=== PATIENT | female | born 1985 | race Caucasian/White ===

== ENCOUNTER 2018-05-24 22:28 | Outpatient (CLI) | payer OTHER ==
[~2018-05-24] VITALS: Ht 180.3 cm; Wt 83.9 kg
[~2018-05-24 22:28] MED LIST: ALBUTEROL SULF8.5 GM IH; CLARITIN10 MG PO; HYDROCODON-ACE1 EAC7 PO; IBUPROFEN800 MG PO; NASA MIST SALIN75 ML BOTH NARES; PULMICORT FLEX90 MCG IH
[2018-05-24 22:33] VITALS: BP 132/74
[2018-05-24 22:43] VITALS: BP 132/74
[2018-05-24] MEDS ORDERED: OMEPRAZOLE40 M1 PO (23:12)
[2018-05-24] MEDS ORDERED: IRON240 MG PO (23:13)
[2018-05-24] MEDS ORDERED: FLINTSTONES1 EACH PO (23:13)
== END 2018-05-24 23:30 | disposition home or self-care (01) ==
LOC: LDRP-OP 22:28 → 2WEST 22:29 → LDRP-OP 07-15 13:12
DX: O36.8190 Decreased fetal movements, unspecified trimester, not applicable or unspecified (principal); Z3A.00 Weeks of gestation of pregnancy not specified
CPT/HCPCS: 59025; G0378

== ENCOUNTER 2018-06-20 07:15 | Inpatient (IN) | payer OTHER ==
[~2018-06-20] VITALS: Ht 180.3 cm; Wt 85.3 kg
[2018-06-20] VITALS (19 sets, daily range): BP systolic 113–139; BP diastolic 58–81
[~2018-06-20 07:15] MED LIST changes: +FLINTSTONES1 EACH PO; +IRON240 MG PO; +OMEPRAZOLE40 M1 PO
[2018-06-20 09:27] LABS: BASOPHIL (%) 0.3 % (0-1); EOSINOPHIL (%) 1.5 % (0-5); EOSINOPHIL COUNT 0.2 K/uL (0-0.3); HEMATOCRIT 36.6 % (36.0-46.0); HEMOGLOBIN 12.5 G/DL (11.9-15.5); LYMPHOCYTE (%) 19.1 % (15-42); MCH 30.6 PG (29.0-34.0); MCHC 34.2 G/DL (30.0-36.0); MCV 89.5 FL (83-99); MONOCYTE (%) 5.8 % (3-12); MONOCYTE COUNT 0.6 K/uL (0-0.8); NEUTROPHIL (%) 72.3 % (45-76); NEUTROPHIL COUNT 7.5 K/uL (1.8-6.4); PLATELET COUNT 253 K/uL (156-360); RBC DIS.WIDTH-CV 13.2 % (11.8-14.6); RBC DIS.WIDTH-SD 43.4 % (39-53); RED BLOOD COUNT 4.09 M/uL (3.80-5.20); WHITE BLOOD COUNT 10.4 K/uL (4.1-10.2)
[2018-06-20 10:09] LABS: AMPHETAMINE NEGATIVE (500 ng/mL); BARBITURATES NEGATIVE (200 ng/mL); BENZODIAZEPINES NEGATIVE (150 ng/mL); BUPRENORPHINE NEGATIVE (10 ng/mL); COCAINE NEGATIVE (150 ng/mL); METHADONE NEGATIVE (200 ng/mL); METHAMPHETAMINE NEGATIVE (500 ng/mL); OPIATES (MORPHINE) NEGATIVE (100 ng/mL); OXYCODONE NEGATIVE (100 ng/mL); PHENCYCLIDINE NEGATIVE (25 ng/mL); PROPOXYPHENE NEGATIVE (300 ng/mL); THC CANNABINOIDS NEGATIVE (50 ng/mL); TRICYCLIC ANTIDEPRESSANTS NEGATIVE (300 ng/mL)
[2018-06-20] MEDS ORDERED: IBUPROFEN800 MG PO (20:43)
[2018-06-21 16:23] VITALS: BP 118/68
== END 2018-06-22 14:20 | disposition home or self-care (01) | DRG 775 ==
LOC: LDRP-OP 07:15 → 2WEST 07:17 → LDRP-OP 10:21 → 2WEST 20:02 → LDRP-OP 07-16 23:34
PROVIDERS: Midwife
PROC: 0HQ9XZZ Repair Perineum Skin, External Approach (ICD-10-PCS; principal; 2018-06-20)
PROC: 3E033VJ Introduction of Other Hormone into Peripheral Vein, Percutaneous Approach (ICD-10-PCS; principal; 2018-06-20)
PROC: 10907ZC Drainage of Amniotic Fluid, Therapeutic from Products of Conception, Via Natural or Artificial Opening (ICD-10-PCS; principal; 2018-06-20)
PROC: 0U7C7ZZ Dilation of Cervix, Via Natural or Artificial Opening (ICD-10-PCS; principal; 2018-06-20)
PROC: 10D07Z6 Extraction of Products of Conception, Vacuum, Via Natural or Artificial Opening (ICD-10-PCS; principal; 2018-06-20)
DX: O70.0 First degree perineal laceration during delivery (principal); O75.81 Maternal exhaustion complicating labor and delivery; O69.81X0 Labor and delivery complicated by cord around neck, without compression, not applicable or unspecified; O48.0 Post-term pregnancy; O99.02 Anemia complicating childbirth; D50.9 Iron deficiency anemia, unspecified; O99.62 Diseases of the digestive system complicating childbirth; K21.9 Gastro-esophageal reflux disease without esophagitis; O99.52 Diseases of the respiratory system complicating childbirth; J45.909 Unspecified asthma, uncomplicated; O99.89 Other specified diseases and conditions complicating pregnancy, childbirth and the puerperium; M41.9 Scoliosis, unspecified; R01.1 Cardiac murmur, unspecified; Z3A.40 40 weeks gestation of pregnancy; Z37.0 Single live birth
CPT/HCPCS: 85025; J0595; J7120